=== PATIENT | female | born 2000 | race Caucasian/White ===

== ENCOUNTER 2022-05-29 14:00 | Outpatient (CLI) | payer BC, SELFPAY ==
[2022-05-29 14:50] LABS: Appearance Urine Slightly Cloudy (Clear); Bilirubin Urine Negative (Negative); Blood Urine 1+ (Negative); Color Urine Yellow (Yellow); Glucose Urine UA Negative (Negative); Ketones Urine 4+ mg/dL (Negative); Leukocyte Esterase Ur 2+ LEU/UL (Negative); Nitrate Urine Positive (Negative); Protein Urine 1+ mg/dL (Negative); Specific Grav Ur 1.015 (1.001-1.035); Urobilinogen Urine 0.2 mg/dL (<2.0); pH Urine 6.5 (5.0-9.0)
[2022-05-29 15:01] LABS: Bacteria Urine 1+ /hpf; Mucus Urine Rare /lpf; Squamous Epithelial Cell Urine Occasional /hpf (Few); WBC Urine >75 /hpf
[2022-05-29 15:03] LABS: Add Urine Microscopic? YES
== END 2022-05-29 14:01 | disposition home or self-care (01) ==
PROVIDERS: Visit Provider Student in an Organized Health Care Education/Training Program
DX: M54.50 Low back pain, unspecified (principal)
CPT/HCPCS: 81001; 87077; 87086; 87186

== ENCOUNTER 2022-05-29 21:17 | Inpatient (IN) | payer BC, SELFPAY ==
[2022-05-29] VITALS (7 sets, daily range): BP systolic 107–113; BP diastolic 65–70; PULSE 103–120; TEMP 37.4–39.4; BMI 22.6
--- NOTE | ~2022-05-29 | US_ITS ---
EXAMINATION: US renal BI DATE: 05/31/2022 08:04 INDICATION: Right flank pain. Urinary tract infection. TECHNIQUE: Multiple ultrasound grayscale images of the kidneys were obtained. COMPARISON: None. FINDINGS: The right kidney measures 12.1 x 7.0 x 6.4 cm. The left kidney measures 10.9 x 6.6 x 5.1 cm. The kidn eys demonstrate normal parenchymal echogenicity. There is mild right hydronephrosis. The bladder is n ormal. There are urine jets from both ureters in the bladder. IMPRESSION: 1. Mild right hydronephrosis. Reviewed, dictated and finalized at location A. ENT SERVICES COUNSELOR
[2022-05-29 22:15] LABS: Basophils Percent Auto 0.1 % (0.2-1.2); Eosinophils Percent Auto 0.1 % (0-4.4); Hematocrit 31.7 % (37.0-47.0); Hemoglobin 10.9 g/dL (12.0-15.0); Immature Granulocyte Absolute 0.08 K/mm3 (0.00-0.031); Immature Granulocyte Percent A 0.5 % (0-0.5); Lymphocytes Absolute Auto 0.62 K/mm3 (0.9-3.2); Lymphocytes Percent Auto 4.1 % (18.3-44.2); Mean Corpuscular HGB Conc 34.4 g/dl (32-36); Mean Corpuscular Hemoglobin 31.5 pg (26-34); Mean Corpuscular Volume 91.6 fl (80-100); Mean Platelet Volume 8.7 fl (7.4-10.4); Monocytes Absolute Auto 1.4 K/mm3 (0.1-0.6); Monocytes Percent Auto 9.2 % (2.6-8.5); Neutrophils Absolute Auto 12.9 K/mm3 (1.3-6.7); Platelet Count Result 206 k/mm3 (150-375); Red Blood Count 3.46 M/mm3 (4.2-5.4); Red Cell Distribution Width 13.2 % (11.5-14.5); White Blood Count 15.1 K/mm3 (4.5-10.0)
[2022-05-29 22:30] LABS: Alanine Aminotransferase 20 U/L (6-35); Albumin Level 3.3 g/dL (3.5-5.1); Alkaline Phosphatase 80 U/L (38-126); Anion Gap 7 mmol/L (8-16); Aspartate Amino Transferase 23 U/L (14-36); Bilirubin,Total 0.6 mg/dL (0.2-1.3); Blood Urea Nitrogen 5 mg/dL (7-17); Calcium 8.3 mg/dL (8.4-10.2); Carbon Dioxide 22 mmol/L (22-30); Chloride 101 mmol/L (98-107); Estimated Glomerular Filt Rate > 60; Glucose 103 mg/dL (65-110); Potassium 3.6 mmol/L (3.4-5.0); Sodium 130 mmol/L (137-145)
--- NOTE | 2022-05-29 22:31 | PC.NURSE ---
2225- called Dr. Luque- pt came in with complaints of fever of 102.4 oral at home. was diagnosed with UTI earlier today and given macrobid 100mg BID. pt took one dose of macrobid, tylenol 1000mg, and zofran earlier today but then vomited around 1999 tonight. labs reviewed. orders received to admit pt for observation- IV rocephin 1g q 24 hours, LR bolus 1000mL then continuous at 150mL/hr, IV tylenol 1000mg q 6 hours prn, zofran prn. will continue to monitor and call if questions/concerns.
[2022-05-29] MEDS: LACTATED RINGERS 1,000 ML 999 ML IV CONT (22:54)
--- NOTE | 2022-05-29 23:23 | OBADM ---
This patient, Rhona Lui, admitted to the OB room OB Post 117 for observation. Patient/family oriented to hospital policies and general routines including ID bracelet, bed and alarms, visiting hours, pain management, procedures, bathroom and other care routines, personal items, smoking policy, room service/diet, and visiting hours. Patient/Family are encouraged to report perceived risks to care and to ask questions if they do not understand what they are told or what they should do.
--- NOTE | 2022-05-29 23:30 | PC.NURSE ---
Heart tones assessed with doppler 165 BPM
[2022-05-30] VITALS (11 sets, daily range): BP systolic 102–127; BP diastolic 40–59; PULSE 97–110; TEMP 36.9–39.3
[2022-05-30] MEDS: LACTATED RINGERS 1,000 ML 150 ML IV CONT ×2 (00:20→07:18)
--- NOTE | 2022-05-30 01:58 | PC.NURSE ---
pt sleeping. no complaints at this time.
--- NOTE | 2022-05-30 07:08 | PM.IMHP ---
H&P: HPI History of Present Illness Date/Time: 05/30/22 07:08 Chief Complaint: fever, N/V Narrative: Rhona is a 21yo @ 23.5wks who presented overnight with fever, nausea, vomiting. She had been treated for UTI by the office on 05/29/22; macrobid and zofran had been prescribed. She took the first dose of meds and vomited it up. She was noted to have a fever of 102.4 at home with right low back pain. She denies any other source of infection; no diarrhea, URI symptoms. She's feeling movement. No vaginal bleeding or leakage of fluid. She reports her back pain is doing better; 09/15. She has not vomited overnight. She is feeling better and wants to order breakfast. Febrile to 102.9 at 2300 on 05/29/22. Review of Systems Constitutional: Constitutional: Denies chills, Denies fever(s) and Denies headache(s) Eyes: Eyes: Denies change in vision Cardiovascular: Cardiovascular: Denies chest pain and Denies rapid heart rate Respiratory: Respiratory: Denies dyspnea Gastrointestinal: Gastrointestinal: Denies abdominal pain, Denies nausea and Denies vomiting Genitourinary: Genitourinary: Reports dysuria, Denies pelvic pain, Reports flank pain (right) and Denies vaginal discharge Neurologic: Denies dizziness and Denies headache(s) [facility] Past Medical History Medical History Suppression of menses Family History Family History Other Kidney malignancy Lung cancer Social History Social History Smoking status: Never smoker Alcohol intake: never Substance use: never Substance use type: does not use 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 Gender identity (if verbalized by the patient): Female Sexual Orientation (if Verbalized by the Patient): Bisexual Meds Home Medications and Allergies Home Medications Medication Instructions Recorded Confirmed Type ondansetron HCl 4 mg tablet 4 mg PO Q6H PRN nausea and 05/04/22 05/04/22 Rx vomiting #30 tabs nitrofurantoin 100 mg PO Q12H 5 days #10 caps 11/21/22 Rx monohydrate/macrocrystals 100 mg capsule (Macrobid) Allergies Allergy/AdvReac Type Severity Reaction Status Date / Time No Known Allergies Allergy Verified 05/29/22 22:17 Vital Signs Vital Signs - 24 hr 05/29/22 21:56 05/29/22 21:57 05/29/22 22:00 Temperature 101.6 F H Pulse Rate 110 H 120 H Blood Pressure 113/65 113/69 05/29/22 22:15 05/29/22 22:30 05/30/22 07:06 Temperature Pulse Rate 106 H 103 H 102 H Blood Pressure 108/66 107/70 104/40 L 05/29/22 23:00 05/29/22 23:47 05/30/22 00:23 Temperature 102.9 F H 99.4 F 98.4 F Pulse Rate Blood Pressure 05/30/22 05:02 05/30/22 06:22 Temperature 99.8 F H 100.3 F H Pulse Rate Blood Pressure H&P: Results Labs Labs: Short CBC 05/29/22 Range/Units 22:03 WBC 15.1 H (4.5-10.0) K/mm3 Hgb 10.9 L (12.0-15.0) g/dL Hct 31.7 L (37.0-47.0) % Plt Count 206 (150-375) k/mm3 [facility] 05/29/22 22:03 Sodium 130 L Potassium 3.6 Chloride 101 Carbon Dioxide 22 BUN 5 L Creatinine 0.50 L Glucose 103 Calcium 8.3 L Liver Function 05/29/22 Range/Units 22:03 Total Bilirubin 0.6 (0.2-1.3) mg/dL AST 23 (14-36) U/L ALT 20 (6-35) U/L Alkaline Phosphatase 80 (38-126) U/L Albumin 3.3 L (3.5-5.1) g/dL Assessment and Plan Assessment and plan (1) Pyelonephritis affecting in second trimester: Code(s): O23.02 - Infections of kidney in , second trimester Status: Acute Assessment and Plan: - Admitted for IV antibiotics and fluids - Tylenol PRN pain/fever - Urine culture pending - Regular diet - Likely discharge 05/31/22 if afebrile and tolerating PO
--- NOTE | 2022-05-30 07:33 | PC.NURSE ---
0748--Dr. Luque at bedside. Assessment performed. Plan of care discussed-pt to stay through second dose of antibiotics and afebrile status.
--- NOTE | 2022-05-30 11:17 | PC.NURSE ---
Patient ate all of her breakfast. IV fluid rate reduced to 75 ml/hr.
[2022-05-30] MEDS: ONDANSETRON INJ 4 MG/2 ML VIAL IV PUSH (13:25)
--- NOTE | 2022-05-30 13:29 | PC.NURSE ---
Patient called out with complaints of sudden coldness, nausea, 3/10 flank pain. Patient's temperature was 102.8. IV Tylenol and IV Zofran given.
[2022-05-30] MEDS: LACTATED RINGERS 1,000 ML 75 ML IV CONT (17:31)
--- NOTE | 2022-05-30 20:45 | PC.NURSE ---
2028- called Dr. Webb (nurse companion for Dr. Luque) pt requesting something to help her sleep but would like something other than ambien. order for benadryl 25mg IV to help with sleep. CBC ordered for 499. will continue to monitor and call if questions/concerns.
[2022-05-30] MEDS: diphenhydrAMINE HCl INJ 50 MG/ML VIAL 25 MG IV PUSH (21:19)
[2022-05-31] VITALS (8 sets, daily range): BP systolic 94–100; BP diastolic 45–56; PULSE 70–77; RESP 16–20; TEMP 36.1–38.9; O2SAT 100
--- NOTE | 2022-05-31 03:11 | PC.NURSE ---
pt with a fever of 102.0-pt also c/o 6/10 pain in lower back- tearful. popsicle offered, ice chips offered, tylenol given. tepid shower offered. pt getting in the shower with mom in room. pt to call out when done and will start IV fluids back up.
--- NOTE | 2022-05-31 04:19 | PC.NURSE ---
0320- pt called out. out of shower. IV restarted. temp now 98.3 after shower and IV tylenol. pt states that she feels a little better. linens changed. gown changed. no further concerns.
--- NOTE | 2022-05-31 05:09 | PC.NURSE ---
2350- 05/30/2022- heart rate of 145bpm
[2022-05-31 05:19] LABS: Hematocrit 28.6 % (37.0-47.0); Hemoglobin 9.7 g/dL (12.0-15.0); Mean Corpuscular HGB Conc 33.9 g/dl (32-36); Mean Corpuscular Hemoglobin 30.9 pg (26-34); Mean Corpuscular Volume 91.1 fl (80-100); Platelet Count Result 195 k/mm3 (150-375); Red Blood Count 3.14 M/mm3 (4.2-5.4); Red Cell Distribution Width 13.5 % (11.5-14.5)
--- NOTE | 2022-05-31 08:07 | PM.OBPNVD ---
OB - PN: Subj Subjective Date/time seen: 05/31/22 08:07 21-year-old female on day 3 antibiotics for pyelonephritis. She is tolerating regular diet and no longer have any significant lower back or CVA pain. Feeling minimal movement, but no other concerns or questions. Exam: Temperature spike last p.m. Abdomen positive bowel sounds soft uterus nontender heart tones 150-160 No CVA tenderness bilaterally Lab: Urine culture confirms E coli. White blood cell count trending lower. Plan: 1. Renal ultrasound to be sure there are no other significant abnormalities. 2. Will initiate Augmentin as this organism is sensitive. 3. Likely home later today or tomorrow pending result of renal ultrasound. This is all been discussed with patient and her mother, questions have been answered, they agree with plan of care. OB - PN: Obj Data Labs CBC & Chem 7: 05/31/22 04:53 05/29/22 22:03 Labs: Laboratory Results - last 24 hr 05/31/22 04:53 WBC 11.0 H RBC 3.14 L Hgb 9.7 L Hct 28.6 L MCV 91.1 MCH 30.9 MCHC 33.9 RDW 13.5 Plt Count 195 MPV 9.0 OB - PN A/P Time Spent With Patient Time: Total time spent is greater than 50% in coordination of care (as documented) at patient's floor/unit and/or counseling patient:
[2022-05-31] MEDS: LACTATED RINGERS 1,000 ML 75 ML IV CONT (08:23)
[2022-05-31] MEDS: AMOXICILLIN/CLAVULANATE K 875-125 MG TAB 1 TABLET PO ×3 (09:19→21:40)
[2022-05-31] MEDS: ACETAMINOPHEN 500 MG TABLET 1000 MG PO (21:11)
[2022-06-01 04:01] VITALS: BP 102/51; PULSE 84
[2022-06-01 04:05] VITALS: TEMP 36.3
[2022-06-01] MEDS: AMOXICILLIN/CLAVULANATE K 875-125 MG TAB 1 TABLET PO (07:20)
[2022-06-01 09:36] VITALS: BP 111/61; PULSE 92
[2022-06-01 09:38] VITALS: TEMP 36.4
--- NOTE | 2022-06-01 10:05 | PC.NURSE ---
Dr. Chavez at bedside to discuss plan of care with pt.
--- NOTE | 2022-06-01 10:15 | PM.OBDSVD ---
DS: Admitting Diagnosis Discharge Date 06/01/2022 Admitting Diagnosis 1. Twenty-eight week 2.pyelonephritis OB - DS: Summary Hospital Course Hospital Course: 21-year-old female admitted with increasing right flank pain and fever. Was placed on antibiotics and white count decreased and temperature defervesced. no longer having pain and will be discharged home today. OB Procedures : NST OB Procedures Intrapartum: Other OB Procedures: : Other Time Spent with Patient Time attestation: Total time spent providing and/or coordinating discharge services: Discharge Plan Discharge Discharging Clinician: Giacomo Chavez Patient Disposition: Home, Self-Care Activity: as tolerated Diet: as tolerated Discharge Instructions: OB ANTEPARTUM DISCHARGE INSTRUCTIONS This information is given to help you properly care for yourself at home after your discharge from the hospital. Follow these instructions until your doctor tells you otherwise. DIET: Eat Three Well Balanced Meals per Day Drink at Least Eight 8-Ounce Glasses of Caffeine-Free Beverages Daily Additional Diet Instructions: ACTIVITY: As Tolerated Increase Periods of Rest Additional Activity Instructions: RETURN TO LABOR AND DELIVERY IF YOU HAVE: Any Change In Baby's Normal Movement Pattern Any Leakage of Fluid More than 6 Contractions in an Hour Vaginal Bleeding Additional Reasons to Return to Labor and Delivery: Contractions may feel like abdominal pain, tightening, cramping, pressure, back ache, or thigh ache. OTHER INSTRUCTIONS: FOLLOW-UP CARE: Keep Next Scheduled Appointment To see in/on Valuables released to patient or family? Medications from home returned to patient? I Acknowledge Receipt of and Understand the Above Instructions IF YOU HAVE ANY QUESTIONS REGARDING THESE INSTRUCTIONS, PLEASE CALL [phone]. IF PROBLEMS ARISE, CALL YOUR PROVIDER. IF EMERGENCY CARE IS NEEDED, [facility] EM[facility]Y ROOM IS AVAILABLE 24 HOURS A DAY. Patient Instructions: Antibiotic Form Stand Alone Forms: General Discharge Information Follow-up/Referrals: Sheron Luque MD [Physician] - 1 Week Discharge Medications: New amoxicillin-pot clavulanate 875-125 mg tablet 1 tablet PO Q8H Qty: 30 0RF Continued ondansetron HCl 4 mg tablet 4 mg PO Q6H PRN (Reason: nausea and vomiting) Qty: 30 0RF Discontinued nitrofurantoin monohyd/m-cryst [Macrobid] 100 mg capsule 100 mg PO Q12H 5 Days Qty: 10 0RF Date of admission: 05/30/22 10:24 Primary Care Provider: PHYSICIAN,LIGHTING ENGINEER Admitting Provider: Sheron Luque Attending physician on admission: Sheron Luque Condition: Stable
--- NOTE | 2022-06-08 08:55 | P.PNOB_ITS ---
OB - Triage/Final Diagnosis Visit Information Reason for evaluation: other (Pyelonephritis) Comments/Additional reasons for admission: I have assessed the risk for this patient, Rhona Lui, and determined that she would benefit from observation care. Evaluation Laboratory results: Laboratory Tests 05/29/22 05/29/22 05/31/22 22:03 22:03 04:53 WBC 15.1 H 11.0 H RBC 3.46 L 3.14 L Hgb 10.9 L 9.7 L Hct 31.7 L 28.6 L MCV 91.6 91.1 MCH 31.5 30.9 MCHC 34.4 33.9 RDW 13.2 13.5 Plt Count 206 195 MPV 8.7 9.0 Immature Gran % (Auto) 0.5 Neut % (Auto) 86.0 H Lymph % (Auto) 4.1 L [place] % (Auto) 9.2 H Eos % (Auto) 0.1 Baso % (Auto) 0.1 L Lymph # (Auto) 0.62 L [place] # (Auto) 1.4 H Eos # (Auto) 0.0 Baso # (Auto) 0.0 Abs Immat Gran (auto) 0.08 H Absolute Neuts (auto) 12.9 H Absolute Nucleated RBC 0.0 Nucleated RBC % 0.0 Sodium 130 L Potassium 3.6 Chloride 101 Carbon Dioxide 22 Anion Gap 7 L BUN 5 L Creatinine 0.50 L Estim Creat Clear Calc Not Reportable Estimated GFR > 60 Glucose 103 Calcium 8.3 L Total Bilirubin 0.6 AST 23 ALT 20 Alkaline Phosphatase 80 Total Protein 6.0 L Albumin 3.3 L
== END 2022-06-01 10:16 | disposition home or self-care (01) | DRG 833 ==
PROVIDERS: Student in an Organized Health Care Education/Training Program; Admitting Provider Obstetrics & Gynecology; Visit Provider Obstetrics & Gynecology
DX: O23.03 Infections of kidney in pregnancy, third trimester (principal); B96.20 Unspecified Escherichia coli [E. coli] as the cause of diseases classified elsewhere; Z3A.28 28 weeks gestation of pregnancy
CPT/HCPCS: 36415; 76775; 80053; 81001; 85025; 85027; 87077; 87086; 87186; A9270; J0131; J0696; J1200; J2405; J7120

== ENCOUNTER 2022-07-11 09:05 | Observation (INO) | payer BC, SELFPAY ==
[2022-07-11] VITALS (14 sets, daily range): BP systolic 112; BP diastolic 64; PULSE 82–113; O2SAT 98–100; BMI 22.8
--- NOTE | ~2022-07-11 | US_ITS ---
EXAMINATION: US OB limited DATE: 07/11/2022 10:22 INDICATION: Cervical length. Estimated gestational age of 29 weeks and 5 days. TECHNIQUE: Real-time transabdominal and transvaginal ultrasound of the pelvis was performed. COMPARISON: None. FINDINGS: Transabdominal images demonstrate a single fetus in vertex presentation. The placenta is anterior. F etal heart rate is 140 beats per minute (bpm). The amniotic fluid volume is subjectively normal. Transvaginal images demonstrate a normal cervical length measuring 2.9 cm. IMPRESSION: 1. Single living fetus in vertex presentation. 2. Normal cervical length. Reviewed, dictated and finalized at location A. ING MACHINE BACK TENDER
--- NOTE | 2022-07-11 09:31 | OBADM ---
This patient, Rhona Lui, admitted to the OB room OB Post 115 for observation. Patient/family oriented to hospital policies and general routines including ID bracelet, bed and alarms, visiting hours, pain management, procedures, bathroom and other care routines, personal items, smoking policy, room service/diet, and visiting hours. Patient/Family are encouraged to report perceived risks to care and to ask questions if they do not understand what they are told or what they should do.
--- NOTE | 2022-07-11 09:58 | PC.NURSE ---
0950: spoke to Dr. Webb regarding patient's status. Order cervical length.
--- NOTE | 2022-07-11 10:48 | PC.NURSE ---
1045- notified Dr. Webb of ultrasound results. Okay to discharge.
--- NOTE | 2022-07-12 14:29 | PM.OBTRLD ---
OB - Triage/Final Diagnosis Visit Information Date of evaluation: 07/11/22 Reason for evaluation: threatened labor Comments/Additional reasons for admission: I have assessed the risk for this patient, Rhona Lui, and determined that she would benefit from observation care.
== END 2022-07-11 11:01 | disposition home or self-care (01) ==
PROVIDERS: Admitting Provider Student in an Organized Health Care Education/Training Program; Visit Provider Student in an Organized Health Care Education/Training Program
DX: O47.1 False labor at or after 37 completed weeks of gestation (principal); Z3A.29 29 weeks gestation of pregnancy
CPT/HCPCS: 59025; 76815; G0378; G0379

== ENCOUNTER 2022-07-13 13:31 | Outpatient (CLI) | payer BC, SELFPAY ==
[2022-07-13 14:06] LABS: Basophils Percent Auto 0.3 % (0.2-1.2); Eosinophils Absolute Auto 0.1 K/mm3 (0-0.3); Hematocrit 30.8 % (37.0-47.0); Hemoglobin 10.2 g/dL (12.0-15.0); Immature Granulocyte Absolute 0.06 K/mm3 (0.00-0.031); Lymphocytes Absolute Auto 1.19 K/mm3 (0.9-3.2); Lymphocytes Percent Auto 20.7 % (18.3-44.2); Mean Corpuscular HGB Conc 33.1 g/dl (32-36); Mean Corpuscular Hemoglobin 29.9 pg (26-34); Mean Corpuscular Volume 90.3 fl (80-100); Mean Platelet Volume 8.6 fl (7.4-10.4); Monocytes Absolute Auto 0.4 K/mm3 (0.1-0.6); Monocytes Percent Auto 6.6 % (2.6-8.5); Neutrophils Percent Auto 70.4 % (45.5-73.1); Platelet Count Result 321 k/mm3 (150-375); Red Blood Count 3.41 M/mm3 (4.2-5.4); Red Cell Distribution Width 13.2 % (11.5-14.5); White Blood Count 5.8 K/mm3 (4.5-10.0)
[2022-07-13 14:56] LABS: HIV 1/2 Ab P24 Ag Result Negative (Negative)
== END 2022-07-13 13:32 | disposition home or self-care (01) ==
PROVIDERS: Visit Provider Student in an Organized Health Care Education/Training Program
DX: Z34.90 Encounter for supervision of normal pregnancy, unspecified, unspecified trimester (principal)
CPT/HCPCS: 36415; 85025; 86703; G0432

== ENCOUNTER 2022-07-29 10:47 | Outpatient (CLI) | payer BC, SELFPAY ==
[2022-07-29 12:37] LABS: Glucose 1 Hour PP 50gm Dose 97 mg/dL
[2022-07-29 13:08] LABS: Hepatitis B Surface Antigen Negative (Negative)
[2022-07-31 10:51] LABS: Rapid Plasma Reagin Non-Reactive (NonReactive)
[2022-08-02 16:04] LABS: CMV IgG Antibody <0.60 U/mL (<0.60)
== END 2022-07-29 10:48 | disposition home or self-care (01) ==
LOC: ANHLAB 10:48
PROVIDERS: Visit Provider Student in an Organized Health Care Education/Training Program
DX: Z34.90 Encounter for supervision of normal pregnancy, unspecified, unspecified trimester (principal); Z3A.00 Weeks of gestation of pregnancy not specified
CPT/HCPCS: 36415; 82947; 86592; 86644; 86747; 86787; 86850; 86900; 86901; 87077; 87086; 87186; 87340

== ENCOUNTER 2022-09-13 16:52 | Inpatient (IN) | payer BC, SELFPAY ==
[2022-09-13] VITALS (11 sets, daily range): BP systolic 99–130; BP diastolic 59–83; PULSE 74–109; RESP 18; TEMP 36.8–37; BMI 25.0
--- NOTE | 2022-09-13 17:19 | LDADM ---
This patient, Rhona Lui, was admitted to Labor/Delivery/Recovery 105 on 09/13/22 at 16:52. Plans for labor, pain management and were discussed with patient. Patient/family oriented to hospital policies and general routines including ID bracelet, bed and alarms, visiting hours, pain management, procedures, bathroom and other care routines, personal items, smoking policy, room service/diet and guest tray routines, infant security routines, and visiting hours. Patient/Family are encouraged to report perceived risks to care and to ask questions if they do not understand what they are told or what they should do. See OBIX for further documentation.
[2022-09-13 17:30] LABS: Basophils Absolute Auto 0.1 K/mm3 (0.0-0.1); Basophils Percent Auto 0.5 % (0.2-1.2); Eosinophils Absolute Auto 0.1 K/mm3 (0-0.3); Eosinophils Percent Auto 0.8 % (0-4.4); Hematocrit 33.9 % (37.0-47.0); Hemoglobin 11.3 g/dL (12.0-15.0); Immature Granulocyte Absolute 0.05 K/mm3 (0.00-0.031); Immature Granulocyte Percent A 0.5 % (0-0.5); Lymphocytes Absolute Auto 2.33 K/mm3 (0.9-3.2); Mean Corpuscular HGB Conc 33.3 g/dl (32-36); Mean Corpuscular Hemoglobin 28.8 pg (26-34); Mean Corpuscular Volume 86.5 fl (80-100); Mean Platelet Volume 9.4 fl (7.4-10.4); Monocytes Absolute Auto 0.7 K/mm3 (0.1-0.6); Monocytes Percent Auto 6.3 % (2.6-8.5); Neutrophils Absolute Auto 7.4 K/mm3 (1.3-6.7); Neutrophils Percent Auto 69.9 % (45.5-73.1); Platelet Count Result 257 k/mm3 (150-375); Red Blood Count 3.92 M/mm3 (4.2-5.4); Red Cell Distribution Width 14.7 % (11.5-14.5); White Blood Count 10.6 K/mm3 (4.5-10.0)
[2022-09-13] MEDS: DINOPROSTONE 10 MG VAG INSERT VAGINAL (18:03)
[2022-09-14] VITALS (66 sets, daily range): BP systolic 86–204; BP diastolic 51–160; PULSE 31–162; RESP 16; TEMP 36.5–36.8; O2SAT 88–100
[2022-09-14] MEDS: fentaNYL CITRATE INJ (*CRX) 100 MCG/2 ML VIAL 50 MCG IV PUSH ×3 (03:01→08:09)
--- NOTE | 2022-09-14 03:33 | WPDANESEPP ---
Anes - Eval Pre Procedure Procedure: Labor epidural Date/Time: 09/14/22 03:33 Surgeon: Jovan Preop Diagnosis: Abd pain with contractions Pre Op Diagnosis: iol Patient Data Age: 21 Gender: F Height: 1.73 m Weight: 74.5 kg Last Vital Signs Temp 98.3 F 09/14/22 02:56 Pulse 81 09/14/22 02:56 Resp 18 09/13/22 17:26 BP 125/66 09/14/22 02:56 O2 Del Method Room Air 09/13/22 17:19 Allergies Allergy/AdvReac Type Severity Reaction Status Date / Time No Known Allergies Allergy Verified 09/13/22 09:27 Home Medications Medication Instructions Recorded Confirmed Type prenat.vits,tran,dgb-rnvn-trrxu 1 tablet PO DAILY 06/12/22 09/13/22 History metoclopramide HCl 5 mg tablet 5 mg PO Q6H #30 tabs 07/12/22 09/13/22 Rx (Reglan) sertraline 25 mg tablet 25 mg PO DAILY #30 tabs 09/06/22 09/13/22 Rx Laboratory Tests 09/13/22 09/13/22 09/13/22 17:11 17:11 17:11 WBC 10.6 K/mm3 H K/mm3 (4.5-10.0) RBC 3.92 M/mm3 L M/mm3 (4.2-5.4) Hgb 11.3 g/dL L g/dL (12.0-15.0) Hct 33.9 % L % (37.0-47.0) MCV 86.5 fl fl (80-100) MCH 28.8 pg pg (26-34) MCHC 33.3 g/dl g/dl (32-36) RDW 14.7 % H % (11.5-14.5) Plt Count 257 k/mm3 k/mm3 (150-375) MPV 9.4 fl fl (7.4-10.4) Immature Gran % (Auto) 0.5 % % (0-0.5) Neut % (Auto) 69.9 % % (45.5-73.1) Lymph % (Auto) 22.0 % % (18.3-44.2) [place] % (Auto) 6.3 % % (2.6-8.5) Eos % (Auto) 0.8 % % (0-4.4) Baso % (Auto) 0.5 % % (0.2-1.2) Lymph # (Auto) 2.33 K/mm3 K/mm3 (0.9-3.2) [place] # (Auto) 0.7 K/mm3 H K/mm3 (0.1-0.6) Eos # (Auto) 0.1 K/mm3 K/mm3 (0-0.3) Baso # (Auto) 0.1 K/mm3 K/mm3 (0.0-0.1) Abs Immat Gran (auto) 0.05 K/mm3 H K/mm3 (0.00-0.031) Absolute Neuts (auto) 7.4 K/mm3 H K/mm3 (1.3-6.7) Absolute Nucleated RBC 0.0 K/mm3 K/mm3 (0.0-0.012) Nucleated RBC % 0.0 % % (0.0-0.2) RPR Pending Blood Type A Positive Antibody Screen Negative Patient hx anesthesia problems: none Family hx anesthesia problems: none Results Review: All pre-operative results and documents have been reviewed as part of the pre-operative evaluation. [facility] Past Medical History Medical History (Updated 09/14/22 @ 03:34 by Melchor Harrison CRNA) Suppression of menses Family History Family History (Updated 09/13/22 @ 17:49 by Estela Taylor RN) Grandparent Lung cancer Kidney malignancy Grandparent Lung cancer Other No pertinent family history in first degree relatives Social History Social History Smoking status: Never smoker Second hand tobacco smoke exposure: No Alcohol intake: never Substance use: never Substance use type: does not use Lack of Transportation: No Lack of Food: Never True Current Housing: I Have Housing Concerned About Future Housing: No Difficulty Paying Gas/Electric Bills: No Difficulty Paying for Meds: No Currently Unemployed: No Education: High School Diploma/GED Difficulty w/ Childcare or Family Care: No Living arrangements: with family Occupation/Education: occupation Additional occupation/education comments: manager coding Gender identity (if verbalized by the patient): Female Sexual Orientation (if Verbalized by the Patient): Bisexual Spiritual care concerns: No Exam Day of Procedure 09/14/22 03:33 Patient weight: overweight Airway: Mallampati scale class II
--- NOTE | 2022-09-14 07:38 | WPDHPUPDATE1 ---
History and Physical Update Update Date/Time: 09/14/22 07:38 21 yo who presents at 39w0d for elective IOL. Pt reports good movement. Her has been complicated by pyelonephritis. History and Physical has been reviewed, including an updated exam of the patient. There are NO changes in the patient's condition. Risks, benefits, and alternatives have been discussed and questions answered. Patient agrees to proceed with procedure. A/P: admit to L&D routine admission orders Rh+ GBS neg continuous EFM plan for cervidil IOL
[2022-09-14] MEDS: LACTATED RINGERS 1,000 ML 125 ML IV CONT ×2 (07:40→09:00)
[2022-09-14] MEDS: OXYTOCIN 30 UNITS/NS 500 ML 30 UNITS/500 ML BAG 6 UNITS IV CONT (07:40)
[2022-09-14 08:01] LABS: Rapid Plasma Reagin Non-Reactive (NonReactive)
[2022-09-14] MEDS: ONDANSETRON INJ 4 MG/2 ML VIAL IV PUSH (08:38)
--- NOTE | 2022-09-14 11:44 | PM.OBPRVD ---
OB - Delivery Note Procedure Delivery date: 09/14/22 Procedure: Patient pushed for a spontaneous vaginal delivery. The fetus was delivered atraumatically and placed on the maternal abdomen. The cord was clamped and cut after 1 minute of life. The cord was double clamped and cut and a segment of cord was collected for cord gases. Cord blood was collected for blood type and Coomb's testing. The placenta delivered spontaneously and was noted to be intact. The perineum was inspected and there was a 1st degree perineal laceration and bilateral labial laccerations. The lacerations were repaired with 3-0 vicryl in the usual fashion. The uterus was firm and good hemostasis was noted. The patient and fetus were stable in the delivery room. Induction method: Per Cervidil Protocol Delivery augmentation: Rupture of Membranes and Pitocin Delivery monitor: External FHT Route of delivery: Episiotomy description: None Laceration Description: Perineal - 1st Degree and Labial (bilateral) Delivery repair: vicryl Specimen: No Quantitative Blood Loss (ml): 250 Anesthesia type: Epidural Disposition: Floor () Complications: No immediate complications [place] Baby Date of : 09/14/22 Time of : 11:25 Weeks of gestation at delivery: 39 gender: Female Weight (pounds): 7 Weight (ounces): 4 presentation: vertex position: Right Occiput Anterior Placenta delivery description: Spontaneous Cord Vessel Description: 3 Vessels score one minute: 8 score five minutes: 9 AMG Delivery Billing Delivery Delivery: Delivery Charge
[2022-09-14] MEDS: OXYTOCIN 30 UNITS/NS 500 ML 30 UNITS/500 ML BAG 125 UNITS IV CONT (12:10)
[2022-09-14] MEDS: WITCH HAZEL 40 PADS 1 PAD TOPICAL (13:50)
[2022-09-14] MEDS: BENZOCAINE 20% AER SPR (*SP) 56 GM CAN 1 SPRAY TOPICAL (13:50)
--- NOTE | 2022-09-14 14:00 | OBPPTRN ---
Patient transferred to post room #279 via wheelchair. Support person present. Oriented to unit, room, information board, rooming in, admission packet and security measures. Patient verbalizes understanding.
--- NOTE | 2022-09-14 15:33 | PM.OBDSVD ---
DS: Admitting Diagnosis Discharge Date 09/15/2022 <Giacomo Chavez MD - Last Filed: 09/15/22 12:22> Admitting Diagnosis Intrauterine at term <Tony Webb MD - Last Filed: 09/14/22 15:35> DS: Discharge Diagnosis Discharge Diagnosis (1) : Code(s): Z34.90 - Encounter for supervision of normal , unspecified, unspecified trimester <Tony Webb MD - Last Filed: 09/14/22 15:35> Status: Acute <Tony Webb MD - Last Filed: 09/14/22 15:35> OB - DS: Summary OB Procedures : None <Tony Webb MD - Last Filed: 09/14/22 15:35> OB Procedures Intrapartum: Spontaneous Vag Delivery <Tony Webb MD - Last Filed: 09/14/22 15:35> OB Procedures: : None <Tony Webb MD - Last Filed: 09/14/22 15:35> Peripartum Data Delivery Method: Natural Vaginal <Tony Webb MD - Last Filed: 09/14/22 15:35> Laceration Description: Perineal - 1st Degree and Labial (bilateral) <Tony Webb MD - Last Filed: 09/14/22 15:35> Episiotomy description: None <Tony Webb MD - Last Filed: 09/14/22 15:35> complications: none <Tony Webb MD - Last Filed: 09/14/22 15:35> Status at Discharge Functional status at discharge: independent ambulation <Tony Webb MD - Last Filed: 09/14/22 15:35> Overall status at discharge: patient is back to baseline <Tony Webb MD - Last Filed: 09/14/22 15:35> Time Spent with Patient Time attestation: Total time spent providing and/or coordinating discharge services: <Tony Webb MD - Last Filed: 09/14/22 15:35> Time spent: Less than 30 minutes <Tony Webb MD - Last Filed: 09/14/22 15:35> Exam Const: General: comfortable and no acute distress <Tony Webb MD - Last Filed: 09/14/22 15:35> Resp: Effort & Inspection: normal respiratory effort <Tony Webb MD - Last Filed: 09/14/22 15:35> Auscultation: clear to auscultation bilaterally <Tony Webb MD - Last Filed: 09/14/22 15:35> Cardio: Rate: regular rate <Tony Webb MD - Last Filed: 09/14/22 15:35> GI: GI Palp: Yes Soft to palpation <Tony Webb MD - Last Filed: 09/14/22 15:35> Auscultation: normal bowel sounds <Tony Webb MD - Last Filed: 09/14/22 15:35> Other: Fundus firm below umbilicus <Tony Webb MD - Last Filed: 09/14/22 15:35> Psych: Appearance: grossly normal <Tony Webb MD - Last Filed: 09/14/22 15:35> Mental Status: mental status grossly normal <Tony Webb MD - Last Filed: 09/14/22 15:35> Affect: normal affect <Tony Webb MD - Last Filed: 09/14/22 15:35> DS: Data Data Completed and Pending Labs on day of discharge: Labs from last 24 hours 09/13/22 09/13/22 09/13/22 17:11 17:11 17:11 WBC 10.6 H RBC 3.92 L Hgb 11.3 L Hct 33.9 L MCV 86.5 MCH 28.8 MCHC 33.3 RDW 14.7 H Plt Count 257 MPV 9.4 Immature Gran % (Auto) 0.5 Neut % (Auto) 69.9 Lymph % (Auto) 22.0 [place] % (Auto) 6.3 Eos % (Auto) 0.8 Baso % (Auto) 0.5 Lymph # (Auto) 2.33 [place] # (Auto) 0.7 H Eos # (Auto) 0.1 Baso # (Auto) 0.1 Abs Immat Gran (auto) 0.05 H Absolute Neuts (auto) 7.4 H Absolute Nucleated RBC 0.0 Nucleated RBC % 0.0 RPR Non-reactive Blood Type A Positive Antibody Screen Negative <Tony Webb MD - Last Filed: 09/14/22 15:35> Discharge Plan Discharge Attending physician on discharge: Tony Webb <Tony Webb MD - Last Filed: 09/14/22 15:35> Tony Webb <Giacomo Chavez MD - Last Filed: 09/15/22 12:22> Discharging Clinician: Giacomo Chavez <Tony Webb MD - Last Filed: 09/14/22 15:35> Giacomo Chavez <Giacomo Chavez MD - Last Filed: 09/15/22 12:22> Patient Disposition: Home, S
--- NOTE | 2022-09-14 16:20 | PC.NURSE ---
[id number] Introductions were made, then consulted with patient to assess needs related to . Mother led the conversation with her?plans to feed?her infant and the?experience so far. Resources provided for inpatient and outpatient services with the feeding sheet, mom/baby guide and name written on the white board. Mother voiced understanding of information and requested assistance. Mother works well with her with encouragement and education. Encouraged understanding of the benefits of skin to skin (demonstrating unwrapping infant and placing upright on her chest), stimulating with massage touch, changing positions to encourage wakefulness, how to watch for early feeding cues, responsive feeding, feeding on demand (aiming for 8-12 times in 24 hours, about every 2-3 hours), milk production, building/maintaining a milk supply, duration of feeding, signs of adequate intake/output and how to record on the feeding sheet. Reviewed positioning and ear, shoulder, hip alignment, supporting the breast to facilitate a deep latch, asymmetrical latch (off-center), leading with the chin with a big, open, wide gape and body close to mother. Infant latched optimally to the right breast in cross cradle position for 5 minutes with no pain or misshaped nipple after detach. Infant placed skin to skin, then after feeding cues were observed infant was positioned to the left breast using the football hold latching optimally with good suck/swallow rocking motion and no pain to mother. Education given to mother of how to visualize suck/swallow ratios and listen for drinking at the breast. was able to maintain latch without discomfort to mother. Nipple care reviewed with optimal latch and good positioning. Reviewed good handwashing when or touching the breast/nipples to prevent infection. Resources used to facilitate learning were used with the visual handouts, tool, mom and baby guide. Mother voiced understanding of skin to skin, stimulating with massage touch, responsive feedings, hand expressed colostrum, talking to to encourage if it has been 2 -2.5 hours since the start of the last , to call if infant does not latch, or if there is discomfort with . Resources provided for inpatient/outpatient with business card and the mom/baby guide. Parents voiced understanding of information, demonstrated learning and will call if there is a request for assistance. Reported to the primary RN.
[2022-09-14] MEDS: DOCUSATE SODIUM 100 MG CAPSULE PO (16:33)
[2022-09-14] MEDS: ACETAMINOPHEN 325 MG TABLET 650 MG PO (23:36)
[2022-09-15 04:31] LABS: Hematocrit 29.6 % (37.0-47.0); Hemoglobin 9.6 g/dL (12.0-15.0)
[2022-09-15] MEDS: MULTIVIT/MIN/PREN/FOL AC/IRON TABLET 1 TAB PO (08:16)
[2022-09-15] MEDS: DOCUSATE SODIUM 100 MG CAPSULE PO (08:16)
[2022-09-15] MEDS: POLYSACCHARIDE IRON COMPLEX 150 MG CAPSULE PO (08:17)
[2022-09-15] MEDS: SERTRALINE HCL 25 MG TABLET PO (08:17)
[2022-09-15 09:10] VITALS: BP 115/61; PULSE 84; RESP 16; TEMP 36.8; O2SAT 98
--- NOTE | 2022-09-15 09:31 | WPDANLDPN2 ---
Anes-Prog Note L&D Date/Time: 09/15/22 09:31 Comfortable throughout: labor and delivery Neuraxial method: epidural Epidural/Spinal procedure site: clean & non-tender Neuro status: Neuro function grossly intact. Cardiovascular status: normal Respiratory status: normal Airway patency: baseline Mental status: baseline Post-Op hydration status: normal Vital Signs: Last Vital Signs Temp 36.5 C 09/14/22 19:19 Pulse 87 09/14/22 19:19 Resp 16 09/14/22 19:19 BP 114/72 09/14/22 19:19 Pulse Ox 97 09/14/22 14:05 O2 Del Method Room Air 09/15/22 08:30 Pain score (VAS): 0 I/O: Intake & Output 09/14/22 09/15/22 09/15/22 23:59 07:59 15:59 Intake Total 1000 Balance 1000 Post-procedural complaints: none Patient feedback: Patient satisfied with anesthetic care.
--- NOTE | 2022-09-15 10:48 | PC.NURSE ---
[id number] Mother led the conversation with her experience and plan to feed her so far and her ability to independently latch optimally without discomfort. Mother is feeding appropriately for growth of and understands stimulating infant to eat if needed. has had appropriate feedings in the last 24 hours meets the outcomes for weight, output and jaundice at this time. Mother states she is confident to continue effectively breastfeed her infant at home, when to call for assistance and denies any additional assistance or education at this time after questions had been answered and discussed. Reinforced understanding of milk production, transition of milk, signs of adequate intake, transition of stool, prevention/relief of engorgement, responsive watching for feeding cues, the different methods of stimulating infant to breastfeed 2-3 hours after the start of the last feeding, community resources and when to call a provider using the resource of the mom and baby guide/[facility] website. Mother voiced understanding of the education shared.
[2022-09-18 10:18] VITALS: BP 112/74; PULSE 93; RESP 18; TEMP 37.5; O2SAT 98
== END 2022-09-15 17:25 | disposition home or self-care (01) | DRG 807 ==
LOC: ANHLDR 16:57 → ANHOB2 09-14 14:17
PROVIDERS: Admitting Provider Student in an Organized Health Care Education/Training Program; Visit Provider Student in an Organized Health Care Education/Training Program
DX: O70.0 First degree perineal laceration during delivery (principal); Z37.0 Single live birth; Z3A.39 39 weeks gestation of pregnancy
CPT/HCPCS: 36415; 85014; 85018; 85025; 86592; 86850; 86900; 86901; A9270; J2405; J2590; J2795; J3010; J7120